=== PATIENT | female | born 1995 | race Caucasian/White ===

== ENCOUNTER 2018-01-04 17:31 | Emergency (ER) | payer BC ==
[2018-01-04] MEDS ORDERED: Sodium Chloride 0.9% 5 ML Syringe FLUSH PRN (17:38)
[2018-01-04] MEDS ORDERED: Sodium Chloride 0.9% 1,000 ML ONE (17:44)
[2018-01-04] MEDS ORDERED: Ondansetron 4 MG/2 ML SDV ONE (17:44)
[2018-01-04] MEDS ORDERED: HYDROmorphone 1 MG/ML Syringe ONE (17:44)
[2018-01-04] MEDS ORDERED: Ketorolac 30 MG/ML SDV ONE (17:53)
[2018-01-04] MEDS ORDERED: HYDROmorphone 1 MG/ML Syringe IVPUSH ONE (17:54)
[2018-01-04] MEDS ORDERED: Ondansetron 4 MG/2 ML SDV IVPUSH ONE ×2 (17:54→18:44)
[2018-01-04] MEDS ORDERED: Ketorolac 30 MG/ML SDV IVPUSH ONE (17:54)
--- NOTE | 2018-01-04 17:59 | EDM.PDOC ---
ED HPI GENERAL MEDICAL PROBLEM - General Chief Complaint: General Stated Complaint: LIGHT HEADED Time Seen by Provider: 01/04/18 17:53 Source of Information: Reports: Patient History Limitations: Reports: No Limitations - History of Present Illness INITIAL COMMENTS - FREE TEXT/NARRATIVE: Patient is a 22-year-old female who presents to the emergency department this afternoon with a complaint of migraine headache and abdominal pain. Patient is status post laparoscopic cholecystectomy on January 01 and surgery was said to be uneventful. Patient states that she's had some abdominal crampy pain since discharge, but now has her typical migraine headache and had 2 episodes of vomiting today. Patient denies chest pain, shortness of breath, fever, bowel changes, dysuria, or any trauma. Onset: Gradual Duration: Day(s): Location: Reports: Head, Abdomen Quality: Reports: Throbbing Severity: Moderate Improves with: Reports: None Worsens with: Reports: None Associated Symptoms: Reports: Nausea/Vomiting. 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 - Past Surgical History Musculoskeletal Surgical History: Reports: Arthroscopic Knee, Other (See Below) Social & Family History - Tobacco Use Smoking Status *Q: Current Every Day Smoker Years of Tobacco use: 6 Month Tobacco Last Used: nov Second Hand Smoke Exposure: Yes - Alcohol Use Days Per Week of Alcohol Use: 0 - Recreational Drug Use Recreational Drug Use: No - Living Situation & Occupation Living situation: Reports: Single Occupation: Employed ED ROS GENERAL - Review of Systems Review Of Systems: ROS reveals no pertinent complaints other than HPI. Constitutional: Reports: No Symptoms, Decreased Appetite. Denies: Fever HEENT: Reports: No Symptoms Respiratory: Reports: No Symptoms Cardiovascular: Reports: No Symptoms Endocrine: Reports: No Symptoms GI/Abdominal: Reports: Abdominal Pain, Nausea, Vomiting : Reports: No Symptoms Musculoskeletal: Reports: No Symptoms Skin: Reports: No Symptoms Neurological: Reports: Headache Psychiatric: Reports: No Symptoms Hematologic/Lymphatic: Reports: No Symptoms Immunologic: Reports: No Symptoms ED EXAM, GENERAL - Physical Exam Exam: See Below Exam Limited By: No Limitations General Appearance: Alert, WD/WN, Mild Distress Eye Exam: Bilateral Eye: Normal Inspection Nose: Normal Inspection, Normal Mucosa, No Blood Throat/Mouth: Normal Inspection, Normal Oropharynx, No Airway Compromise Head: Atraumatic, Normocephalic Neck: Normal Inspection, Supple, Non-Tender, Full Range of Motion Respiratory/Chest: No Respiratory Distress, Lungs Clear, Normal Breath Sounds, No Accessory Muscle Use, Chest Non-Tender Cardiovascular: Regular Rate, Rhythm, No Murmur GI/Abdominal: Normal Bowel Sounds, Soft, Non-Tender, No Organomegaly, No Distention, No Abnormal Bruit, No Mass, Other (Trocar incision sites without erythema, discharge, or dehiscence) Back Exam: Normal Inspection. No: CVA Tenderness (L), CVA Tenderness (R) Extremities: Normal Inspection, No Pedal Edema Neurological: Alert, Oriented, Normal Cognition Psychiatric: Normal Affect, Normal Mood Skin Exam: Warm, Dry, Intact, Normal Color, No Rash Lymphatic: No Adenopathy Course - Orders/Labs/Meds Orders: Active Orders 24 hr Category Date Time Status Peripheral IV Care [RC] . DIRECTED Care 01/04/18 17:38 Active COMPREHENSIVE METABOLIC PN,CMP [CHEM] Stat Lab 01/04/18 17:40 Received URINALYSIS W/MICROSCOPIC [UA W/MICROSCOPIC] [URIN] Stat Lab 01/04/18 17:38 Ordered HYDROmorphone [Dilaudid] Med 01/04/18 17:54 Once 0.5 mg IVPUSH ONETIME ONE Ketorolac [Toradol] Med 01/04/18 17:54 Once 30 mg IVPUSH ONETIME ONE Ondansetron [Zofran] Med 01/04/18 17:54 Once 4 mg IVPUSH ONETIME ONE Sodium Chloride 0.9% [Syrex Flush] Med 01/04/18 17:38 Active 5 ml FLUSH Q8HR PRN Peripheral IV Insertion Adult [OM.PC] Routine Oth 01/04/18 17:38 Ordered Medication Orders Sodium Chloride (Syrex Flush) 5 ml FLUSH Q8HR PRN PRN Reason: Keep Vein Open Labs: Laboratory Tests 01/04/18 Range/Units 17:40 WBC 4.2 L (5.0-10.0) 10^3/uL RBC 4.57 (3.80-5.50) 10^6/uL Hgb 13.4 (12.0-16.0) g/dL Hct 40.3 (37.0-47.0) % MCV 88.2 D (82.0-92.0) fL MCH 29.2 (27.0-31.0) pg MCHC 33.1 (32.0-36.0) g/dL RDW 12.2 (11.5-14.5) % Plt Count 133 L D (150-300) 10^3/uL MPV 8.3 (7.4-10.4) fL Neut % (Auto) 64.6 (50.0-70.0) % Lymph % (Auto) 22.5 (20.0-40.0) % [place] % (Auto) 8.7 H (2.0-8.0) % Eos % (Auto) 3.3 H (1.0-3.0) % Baso % (Auto) 0.9 (0.0-1.0) % Neut # (Auto) 2.8 (2.5-7.0) 10^3/uL Lymph # (Auto) 0.9 L (1.0-4.0) 10^3/uL [place] # (Auto) 0.4 (0.1-0.8) 10^3/uL Eos # (Auto) 0.1 (0.1-0.3) 10^3/uL Baso # (Auto) 0.0 (0.0-0.1) 10^3/uL Meds: Medications Generic Name Dose Route Start Last Admin Trade Name Freq PRN Reason Stop Dose Admin Sodium Chloride 5 ml 01/04/18 17:38 Syrex Flush FLUSH Q8HR PRN Keep Vein Open Discontinued Medications Generic Name Dose Route Start Last Admin Trade Name Freq PRN Reason Stop Dose Admin Hydromorphone HCl Confirm 01/04/18 17:44 Dilaudid Administered 01/04/18 17:45 Dose 1 mg .ROUTE .STK-MED ONE Sodium Chloride Confirm 01/04/18 17:44 Normal Saline Administered 01/04/18 17:45 Dose 1,000 mls @ as directed .ROUTE .STK-MED ONE Ondansetron HCl Confirm 01/04/18 17:44 Zofran Administered 01/04/18 17:45 Dose 4 mg .ROUTE .STK-MED ONE - Re-Assessments/Exams Free Text/Narrative Re-Assessment/Exam: 01/04/18 18:42 Patient afebrile, nontoxic appearing, vital signs stable. Headache and nausea relieved. Patient feeling much better. Patient will follow-up at [facility] tomorrow. Departure - Departure Time of Disposition: 18:44 Disposition: Home, Self-Care 01 Condition: Good Clinical Impression: Status post laparoscopic cholecystectomy Migraine headache Qualifiers: Migraine type: unspecified Status migrainosus presence: without status migrainosus Intractability: not intractable Qualified Code(s): G43.909 - Migraine, unspecified, not intractable, without status migrainosus - Discharge Information Instructions: Recurrent Migraine Headache, [id number] Referrals: Carmen Padilla PA-C [Primary Care Provider] - Forms: ED Department Discharge Additional Instructions: Follow-up at [facility] tomorrow. Return to emergency department sooner if symptoms continue or worsen. Take medication as directed - My Orders Last 24 Hours: My Active Orders 01/04/18 17:38 Peripheral IV Care [RC] . DIRECTED URINALYSIS W/MICROSCOPIC [UA W/MICROSCOPIC] [URIN] Stat Sodium Chloride 0.9% [Syrex Flush] 5 ml FLUSH Q8HR PRN Peripheral IV Insertion Adult [OM.PC] Routine 01/04/18 17:40 COMPREHENSIVE METABOLIC PN,CMP [CHEM] Stat 01/04/18 17:54 HYDROmorphone [Dilaudid] 0.5 mg IVPUSH ONETIME ONE Ketorolac [Toradol] 30 mg IVPUSH ONETIME ONE Ondansetron [Zofran] 4 mg IVPUSH ONETIME ONE - Assessment/Plan Last 24 Hours: My Active Orders 01/04/18 17:38 Peripheral IV Care [RC] . DIRECTED URINALYSIS W/MICROSCOPIC [UA W/MICROSCOPIC] [URIN] Stat Sodium Chloride 0.9% [Syrex Flush] 5 ml FLUSH Q8HR PRN Peripheral IV Insertion Adult [OM.PC] Routine 01/04/18 17:40 COMPREHENSIVE METABOLIC PN,CMP [CHEM] Stat 01/04/18 17:54 HYDROmorphone [Dilaudid] 0.5 mg IVPUSH ONETIME ONE Ketorolac [Toradol] 30 mg IVPUSH ONETIME ONE Ondansetron [Zofran] 4 mg IVPUSH ONETIME ONE Assessment:: Migraine headache, status post laparoscopic cholecystectomy Plan: Follow up at [facility] tomorrow
[2018-01-04 18:05] VITALS: BP 131/78
[2018-01-04 18:06] LABS: CHLORIDE,CL 103 mmol/L (98-115); SODIUM,NA 141 mmol/L (136-145)
[2018-01-04] MEDS ORDERED: Sodium Chloride 0.9% 1,000 ML IV ONE (18:11)
[2018-01-04] MEDS ORDERED: Acetaminophen/oxyCODONE 325-5 MG Tab PO ONE (18:41)
[2018-01-04] MEDS ORDERED: Ondansetron 4 MG Tab.DIS PO ONE (18:41)
== END 2018-01-04 19:00 | disposition home or self-care (01) ==
LOC: KA.ED 17:31
DX: G43.909 Migraine, unspecified, not intractable, without status migrainosus (principal); F17.210 Nicotine dependence, cigarettes, uncomplicated; Z90.49 Acquired absence of other specified parts of digestive tract
CPT/HCPCS: 80053; 81001; 85025; 96361; 96374; 96375; 99283; A9270; J1170; J1885; J2405; J7030

== ENCOUNTER 2021-07-08 18:24 | Emergency (ER) | payer BC, OTHER ==
--- NOTE | 2021-07-08 18:51 | EDM.PDOC ---
ED HPI GENERAL MEDICAL PROBLEM - General Chief Complaint: Respiratory Problem Stated Complaint: COUGH, CONGESTION Time Seen by Provider: 07/08/21 18:51 Source of Information: Reports: Patient, Family History Limitations: Reports: No Limitations - History of Present Illness INITIAL COMMENTS - FREE TEXT/NARRATIVE: Dimas, 26-year-old female, presents with her significant other with generalized body aches, malaise, nausea and headache. Confirmed positive COVID-19 exposure on 01 July 2021 due to receive second immunization 02 July 2021 which was delayed due to there iso lation/quarantine at that time. She had 2 negative tests during that week of the sixth. She started developing symptoms yesterday not feeling as well this morning which has rapidly digressed to the time that she is brought in for evaluation. She denies fever. She has had a headache, generalized body aches, nausea, and mild abdominal discomfort this morning that resolved becoming just generalized body aches and malaise. No production of cough. She has had poor intake fluids as well as solids for the past 2 days with no bowel movement today. She states her urine is very dark and decreased in volume. Last Menses 1 week ago, denies any risk of . Denies any other risk factors. Onset: Gradual Onset Date: 07/07/21 Duration: Hour(s):, Getting Worse Location: Reports: Head, Chest, Abdomen, Generalized Quality: Reports: Burning, Pressure, Sharp, Stabbing, Throbbing Severity: Severe Improves with: Reports: None Worsens with: Reports: Breathing, Movement Context: Reports: Sick Contact Associated Symptoms: Reports: Cough, Headaches, Loss of Appetite, Malaise, Nausea/Vomiting, Weakness Headache Pain Score (Numeric/FACES): 9 - Related Data Allergies Allergy/AdvReac Type Severity Reaction Status Date / Time No Known Allergies Allergy Verified 01/04/18 18:01 Home Meds: Home Meds Hydrocodone/Acetaminophen [Hydrocodon-Acetaminophen 5-325] 1 - 2 tab PO Q4H PRN 01/04/18 [History] Past Medical History Cardiovascular History: Reports: Hypertension (Gestational hypertension) Respiratory History: Reports: None Gastrointestinal History: Reports: Other (See Below) (Dysphagia) 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 Neurological History: Reports: Migraines Psychiatric History: Reports: None Endocrine/Metabolic History: Reports: Multinodular Thyroid - Past Surgical History GI Surgical History: Reports: Cholecystectomy Musculoskeletal Surgical History: Reports: Arthroscopic Knee, Other (See Below) - Past Imaging History Past Imaging History: Reports: CAT Scan, Ultrasound, Xray Social & Family History - Family History Family Medical History: No Pertinent Family History - Tobacco Use Tobacco Use Status *Q: Former Tobacco User Tobacco Use Within Last Twelve Months: Cigarettes - Living Situation & Occupation Living situation: Reports: Single Occupation: Employed ED ROS GENERAL - Review of Systems Review Of Systems: Comprehensive ROS is negative, except as noted in HPI. ED EXAM, GENERAL - Physical Exam Exam: See Below Free Text/Narrative:: Alert, oriented, in moderate distress. There is no cyanosis nor pallor noted Ill-appearing young female with tacky oral membranes. She is warm to the touch but afebrile. PERRLA no icterus no injection. No involvement the auditory canals nor tympanic membranes. Nasal passages are patent. Oropharynx is dry/tacky with no erythema nor exudate. Neck is supple with no lymphadenopathy. Thorax is raspy a lot of referred sounds from the laryngeal region as any effort for deep breath induces a harshness leading to cough. Cardiac is regular free of murmur. Abdomen is soft I do not elicit any tenderness with bowel sounds present. No flank pain. General malaise and tenderness to any of the body areas examined. There is no edema to the lower extremities negative Homans' sign but she states her legs are achy in general. She is able to plantarflex dorsiflex against resistance with no deficits and dorsalis pedis pulse is present. rectal is deferred. #1 Interpretation EKG Date: 07/08/21 Time: 19:12 Rhythm: NSR Rate (Beats/Min): 93 [employer] [employer]: Normal P-Wave: Present QRS: Normal ST-T: Normal QT: Normal Comparison: NA - No Prior EKG Course - Vital Signs Last Recorded V/S: Last Vital Signs Temp 98.5 F 07/08/21 18:45 Pulse 93 07/08/21 21:13 Resp 14 07/08/21 21:13 BP 120/72 07/08/21 21:13 Pulse Ox 95 07/08/21 21:13 - Orders/Labs/Meds Orders: Active Orders 24 hr Category Date Time Status Ondansetron [Zofran ODT] Med 07/08/21 21:35 Ordered 8 mg PO Q4H PRN EKG 12 Lead [EK] Stat Ther 07/08/21 18:53 Ordered Medication Orders Ondansetron HCl (Ondansetron 4 Mg Tab.Dis) 8 mg PO Q4H PRN PRN Reason: Nausea/Vomiting Labs: Laboratory Tests 07/08/21 07/08/21 07/08/21 Range/Units 19:25 19:25 19:30 WBC 10.20 H (5.00-10.00) 10^3/uL RBC 5.30 (3.80-5.50) 10^6/uL Hgb 14.7 (12.0-16.0) g/dL Hct 46.9 (37.0-47.0) % MCV 88.5 (82.0-92.0) fL MCH 27.7 (27.0-31.0) pg MCHC 31.3 L (32.0-36.0) g/dL RDW 12.0 (11.5-14.5) % Plt Count 160 (150-400) 10^3/uL MPV 9.9 (7.4-10.4) fL Immature Gran % (Auto) 0.1 (0.0-5.0) % Neut % (Auto) 83.7 H (50.0-70.0) % Lymph % (Auto) 8.8 L (20.0-40.0) % [place] % (Auto) 4.4 (2.0-8.0) % Eos % (Auto) 2.7 (1.0-3.0) % Baso % (Auto) 0.3 (0.0-1.0) % Neut # (Auto) 8.53 H (2.50-7.00) 10^3/uL Lymph # (Auto) 0.90 L (1.00-4.00) 10^3/uL [place] # (Auto) 0.45 (0.10-0.80) 10^3/uL Eos # (Auto) 0.28 (0.10-0.30) 10^3/uL Baso # (Auto) 0.03 (0.00-0.10) 10^3/uL Immature Gran # (Auto) 0.01 (0.00-0.50) 10^3/uL D-Dimer, Quantitative < 100 (<400) ng/mL Sodium 140 (136-145) mmol/L Potassium 4.2 (3.5-5.1) mmol/L Chloride 102 (98-107) mmol/L Carbon Dioxide 26.7 (21.0-32.0) mmol/L Anion Gap 15.5 H (5-15) mmol/L BUN 7 (7-18) mg/dL Creatinine 0.77 (0.51-1.17) mg/dL Est Cr Clr Drug Dosing TNP Estimated GFR (MDRD) > 60 mL/min Glucose 97 (70-140) mg/dL Lactic Acid (0.4-2.0) mmol/L Calcium 8.7 (8.7-10.3) mg/dL Total Bilirubin 0.4 (0.2-1.0) mg/dL AST 10 L (15-37) U/L ALT 16 (14-63) U/L Alkaline Phosphatase 121 H (46-116) U/L Total Protein 6.8 (6.4-8.2) g/dL Albumin 3.69 (3.40-5.00) g/dL Specimen Type Urine Color (YELLOW) Urine Appearance (CLEAR) Urine pH (5.0-9.0) Ur Specific [place] (1.005-1.030) Urine Protein (NEGATIVE) mg/dL Urine Glucose (UA) (NEGATIVE) mg/dL Urine Ketones (NEGATIVE) mg/dL Urine Occult Blood (NEGATIVE) Urine Nitrite (NEGATIVE) Urine Bilirubin (NEGATIVE) Urine Urobilinogen (0.2-1.0) E.U./dL Ur Leukocyte Esterase (NEGATIVE) Influenza Type A RNA (NEGATIVE) Influenza Type B RNA (NEGATIVE) SARS-CoV-2 RNA (RAIN) (NEGATIVE) 07/08/21 07/08/21 07/08/21 Range/Units 19:30 19:30 20:00 WBC (5.00-10.00) 10^3/uL RBC (3.80-5.50) 10^6/uL Hgb (12.0-16.0) g/dL Hct (37.0-47.0) % MCV (82.0-92.0) fL MCH (27.0-31.0) pg MCHC (32.0-36.0) g/dL RDW (11.5-14.5) % Plt Count (150-400) 10^3/uL MPV (7.4-10.4) fL Immature Gran % (Auto) (0.0-5.0) % Neut % (Auto) (50.0-70.0) % Lymph % (Auto) (20.0-40.0) % [place] % (Auto) (2.0-8.0) % Eos % (Auto) (1.0-3.0) % Baso % (Auto) (0.0-1.0) % Neut # (Auto) (2.50-7.00) 10^3/uL Lymph # (Auto) (1.00-4.00) 10^3/uL [place] # (Auto) (0.10-0.80) 10^3/uL Eos # (Auto) (0.10-0.30) 10^3/uL Baso # (Auto) (0.00-0.10) 10^3/uL Immature Gran # (Auto) (0.00-0.50) 10^3/uL D-Dimer, Quantitative (<400) ng/mL Sodium (136-145) mmol/L Potassium (3.5-5.1) mmol/L Chloride (98-107) mmol/L Carbon Dioxide (21.0-32.0) mmol/L Anion Gap (5-15) mmol/L BUN (7-18) mg/dL Creatinine (0.51-1.17) mg/dL Est Cr Clr Drug Dosing Estimated GFR (MDRD) mL/min Glucose (70-140) mg/dL Lactic Acid 0.9 (0.4-2.0) mmol/L Calcium (8.7-10.3) mg/dL Total Bilirubin (0.2-1.0) mg/dL AST (15-37) U/L ALT (14-63) U/L Alkaline Phosphatase (46-116) U/L Total Protein (6.4-8.2) g/dL Albumin (3.40-5.00) g/dL Specimen Type Urincc Urine Color Yellow (YELLOW) Urine Appearance Cloudy H (CLEAR) Urine pH 8.5 (5.0-9.0) Ur Specific [place] 1.020 (1.005-1.030) Urine Protein Negative (NEGATIVE) mg/dL Urine Glucose (UA) Negative (NEGATIVE) mg/dL Urine Ketones 40 H (NEGATIVE) mg/dL Urine Occult Blood Negative (NEGATIVE) Urine Nitrite Negative (NEGATIVE) Urine Bilirubin Negative (NEGATIVE) Urine Urobilinogen 0.2 (0.2-1.0) E.U./dL Ur Leukocyte Esterase Negative (NEGATIVE) Influenza Type A RNA Negative (NEGATIVE) Influenza Type B RNA Negative (NEGATIVE) SARS-CoV-2 RNA (RAIN) Negative (NEGATIVE) Meds: Medications Generic Name Dose Route Start Last Admin Trade Name Freq PRN Reason Stop Dose Admin Ondansetron HCl 8 mg 07/08/21 21:35 Ondansetron 4 Mg Tab.Dis PO Q4H PRN Nausea/Vomiting Discontinued Medications Generic Name Dose Route Start Last Admin Trade Name Freq PRN Reason Stop Dose Admin Hydromorphone HCl 1 mg 07/08/21 19:08 07/08/21 19:35 Hydromorphone 1 Mg/Ml Syringe IVPUSH 07/08/21 19:09 1 mg ONETIME ONE Administration Sodium Chloride 1,000 mls @ 999 mls/hr 07/08/21 19:07 07/08/21 19:00 Normal Saline IV 07/08/21 20:07 999 mls/hr .BOLUS ONE Administration Sodium Chloride 1,000 mls @ 999 mls/hr 07/08/21 19:55 07/08/21 20:41 Normal Saline IV 07/08/21 20:55 999 mls/hr .BOLUS ONE Administration Promethazine HCl 25 mg/ Sodium 101 mls @ 400 mls/hr 07/08/21 21:02 07/08/21 21:09 Chloride IV 07/08/21 21:17 400 mls/hr Q6H ONE Administration Ondansetron HCl 8 mg 07/08/21 19:07 07/08/21 19:29 Ondansetron 4 Mg/2 Ml Sdv IVPUSH 07/08/21 19:08 8 mg ONETIME ONE Administration Ondansetron HCl Confirm 07/08/21 19:13 07/08/21 19:30 Ondansetron 4 Mg/2 Ml Sdv Administered 07/08/21 19:14 Not Given Dose 4 mg .ROUTE .STK-MED ONE - Re-Assessments/Exams Free Text/Narrative Re-Assessment/Exam: 07/08/21 19:56 1 L of fluid infused with no significant urge for urination. We will start second liter while awaiting lab results. 07/08/21 21:07 Mild nausea returning at this time, will implement 25 mg promethazine IV. Headache has significantly improved feeling much better advised all test being negative. Departure - Departure Time of Disposition: 21:48 Disposition: Home, Self-Care 01 Condition: Good Clinical Impression: COVID-19 ruled out by laboratory testing, Malaise and fatigue, Mild basilar atelectasis of both lungs Headache Qualifiers: Headache type: unspecified Headache chronicity pattern: acute headache Intractability: not intractable Qualified Code(s): R51.9 - Headache, unspecified - Discharge Information *PRESCRIPTION DRUG MONITORING PROGRAM REVIEWED*: Not Applicable *COPY OF PRESCRIPTION DRUG MONITORING REPORT IN PATIENT JORDYN: Not Applicable Instructions: General Headache Without Cause Referrals: Naomi Wynn MD [Primary Care Provider] - Andie Rey NP [Nurse Practitioner] - Forms: ED Department Discharge Additional Instructions: Your COVID-19 and influenza tests are negative. You are likely experiencing some form of viral illness in conjunction with your chronic headache history. You were mildly dehydrated as was shown in the concentration of your urine. You need to go home and rest, we will send Zofran home with you for milligram, 1 every 4 hours as needed for nausea to get you through the night as needed. Contact your clinic in the morning to discuss the visit here tonight and to see when they would like to see you for recheck. Although influenza and Covid were negative this evening with your direct exposure, you still may become positive. Sip on fluids maintain good hydration as tolerated. Advance your diet as you are able to without inducing any abdominal discomfort or nausea. Call your clinic in the morning to discuss reassessment. Return to the emergency department as needed outside clinic hours. Sepsis Event Note (ED) - Focused Exam Vital Signs: Vital Signs Temp Pulse Resp BP Pulse Ox 07/08/21 21:13 93 14 120/72 95 07/08/21 20:45 101 H 14 95 07/08/21 20:42 103 H 16 108/70 95 07/08/21 18:45 98.5 F 101 H 16 102/62 99 - Problem List & Annotations (1) Headache SNOMED Code(s): 61984565 Code(s): R51.9 - HEADACHE, UNSPECIFIED Status: Acute Priority: High Current Visit: Yes Qualifiers: Headache type: unspecified Headache chronicity pattern: acute headache Intractability: not intractable Qualified Code(s): R51.9 - Headache, unspecified (2) Cough SNOMED Code(s): 75933911 Code(s): R05 - COUGH Status: Acute Priority: High Current Visit: Yes (3) Malaise and fatigue SNOMED Code(s): 746415774 Code(s): R53.81 - OTHER MALAISE; R53.83 - OTHER FATIGUE Status: Acute Priority: High Current Visit: Yes (4) Exposure to COVID-19 virus SNOMED Code(s): 247294011 Code(s): Z20.822 - CONTACT WITH AND (SUSPECTED) EXPOSURE TO COVID-19 Status: Acute Priority: High Current Visit: Yes (5) Mild basilar atelectasis of both lungs SNOMED Code(s): 06470370 Code(s): J98.11 - ATELECTASIS Status: Acute Current Visit: Yes (6) COVID-19 ruled out by laboratory testing SNOMED Code(s): 926282236263838831, 502019663132374372 Code(s): Z20.822 - CONTACT WITH AND (SUSPECTED) EXPOSURE TO COVID-19 Status: Acute Current Visit: Yes - Problem List Review Problem List Initiated/Reviewed/Updated: Yes - My Orders Last 24 Hours: My Active Orders 07/08/21 18:53 EKG 12 Lead [EK] Stat 07/08/21 21:35 Ondansetron [Zofran ODT] 8 mg PO Q4H PRN - Assessment/Plan Last 24 Hours: My Active Orders 07/08/21 18:53 EKG 12 Lead [EK] Stat 07/08/21 21:35 Ondansetron [Zofran ODT] 8 mg PO Q4H PRN Plan: Your COVID-19 and influenza tests are negative. You are likely experiencing some form of viral illness in conjunction with your chronic headache history. You were mildly dehydrated as was shown in the concentration of your urine. You need to go home and rest, we will send Raghavendra home with you for milligram, 1 every 4 hours as needed for nausea to get you through the night as needed. Contact your clinic in the morning to discuss the visit here tonight and to see when they would like to see you for recheck. Although influenza and Covid were negative this evening with your direct exposure, you still may become positive. Sip on fluids maintain good hydration as tolerated. Advance your diet as you are able to without inducing any abdominal discomfort or nausea. Call your clinic in the morning to discuss reassessment. Return to the emergency department as needed outside clinic hours.
[2021-07-08] MEDS: Sodium Chloride 0.9% 1,000 ML IV ONE ×2 (19:00→20:41)
[2021-07-08] MEDS: Ondansetron 4 MG/2 ML SDV IVPUSH ONE (19:29)
[2021-07-08] MEDS: Ondansetron 4 MG/2 ML SDV ONE (19:30)
[2021-07-08] MEDS: HYDROmorphone 1 MG/ML Syringe IVPUSH ONE (19:35)
--- NOTE | 2021-07-08 19:43 | CR ---
[id number] RAD/RAD Chest Portable EXAM: PORTABLE CHEST INDICATION: TESTING FOR COVID COMPARISON: November 28, 2019. DISCUSSION: Mild bibasilar atelectasis with no definite infiltrates. Normal heart size. No effusions IMPRESSION: 1. Mild bibasilar atelectasis. No definite infiltrates. Natalio Hernandez MD 07/08/211941 Thank you for allowing us to participate in the care of your patient.
[2021-07-08 20:01] LABS: ANION GAP 15.5 mmol/L (5-15); CHLORIDE,CL 102 mmol/L (98-107); SODIUM,NA 140 mmol/L (136-145)
[2021-07-08 20:15] LABS: CORONAVIRUS COVID-19 NAA NEGATIVE (NEGATIVE)
[2021-07-08] MEDS: Promethazine 25 MG in Sodium Chloride 0.9% 100 ML IV ONE (21:09)
[2021-07-08] MEDS: Ondansetron 4 MG Tab.DIS PO PRN (21:48)
[2021-07-08 21:52] VITALS: BP 106/70; PULSE 92
== END 2021-07-08 21:59 | disposition home or self-care (01) ==
LOC: KA.ED 18:24
DX: J98.11 Atelectasis (principal); R51.9 Headache, unspecified; R53.83 Other fatigue; I10 Essential (primary) hypertension; Z87.891 Personal history of nicotine dependence; Z20.822 Contact with and (suspected) exposure to COVID-19
CPT/HCPCS: 0240U; 36415; 71045; 80053; 81003; 83605; 85025; 85379; 93005; 96365; 96375; 99284; 99284-25; A9270-GY; J1170; J2405; J2550; J7030

== ENCOUNTER 2023-12-14 23:30 | Emergency (ER) | payer OTHER ==
[2023-12-14] MEDS: Sodium Chloride 0.9% 10 ML Syringe FLUSH PRN (23:52)
[2023-12-15] MEDS ORDERED: Naloxone 0.4 MG/ML SDV IVPUSH PRN
[2023-12-15] MEDS: Ondansetron 4 MG/2 ML SDV IVPUSH ONE (00:02)
[2023-12-15] MEDS: HYDROmorphone 1 MG/ML Syringe IVPUSH ONE (00:16)
[2023-12-15 00:32] LABS: BASOPHILS ABSOLUTE AUTO 0.01 10^3/uL (0.00-0.10); BASOPHILS PERCENT AUTO 0.1 % (0.0-1.0); EOSINOPHILS ABSOLUTE AUTO 0.32 10^3/uL (0.10-0.30); EOSINOPHILS PERCENT AUTO 4.4 % (1.0-3.0); HEMATOCRIT 43.6 % (37.0-47.0); HEMOGLOBIN 13.4 g/dL (12.0-16.0); IMMATURE GRAN ABSOLUTE AUTO 0.01 10^3/uL (0.00-0.50); IMMATURE GRAN PERCENT AUTO 0.1 % (0.0-5.0); LYMPHOCYTES ABSOLUTE AUTO 0.51 10^3/uL (1.00-4.00); LYMPHOCYTES PERCENT AUTO 7.1 % (20.0-40.0); MEAN CORPUSCULAR HEMOGLOBIN 27.6 pg (27.0-31.0); MEAN CORPUSCULAR HGB CONC 30.7 g/dL (32.0-36.0); MEAN CORPUSCULAR VOLUME 89.7 fL (82.0-92.0); MEAN PLATELET VOLUME 9.8 fL (7.4-10.4); MONOCYTES PERCENT AUTO 8.3 % (2.0-8.0); NEUTROPHILS ABSOLUTE AUTO 5.77 10^3/uL (2.50-7.00); PLATELET COUNT,PLT 158 10^3/uL (150-400); RED BLOOD CELL COUNT 4.86 10^6/uL (3.80-5.50); RED CELL DISTRIBUTION WIDTH 13.6 % (11.5-14.5); WHITE BLOOD CELL COUNT,WBC 7.22 10^3/uL (5.00-10.00)
[2023-12-15 00:49] LABS: ALANINE AMINOTRANSFERASE,ALT 15 U/L (14-63); ALBUMIN 3.68 g/dL (3.40-5.00); ALKALINE PHOSPHATASE 58 U/L (46-116); ANION GAP 13.3 mmol/L (5-15); BILIRUBIN TOTAL 0.4 mg/dL (0.2-1.0); BLOOD UREA NITROGEN,BUN 10 mg/dL (7-18); CALCIUM 8.1 mg/dL (8.7-10.3); CARBON DIOXIDE,CO2 27.9 mmol/L (21.0-32.0); CHLORIDE,CL 105 mmol/L (98-107); CREATININE 0.79 mg/dL (0.51-1.17); GLUCOSE RANDOM 106 mg/dL (70-140); POTASSIUM,K 4.2 mmol/L (3.5-5.1); PROTEIN TOTAL,TP 6.1 g/dL (6.4-8.2); SODIUM,NA 142 mmol/L (136-145)
[2023-12-15 00:51] LABS: ASPARTATE AMNIOTRANSFERASE,AST < 9 U/L (15-37); ESTIMATED GFR 104 mL/min (>=60)
[2023-12-15 01:07] LABS: INFLUENZA A NAA NEGATIVE (NEGATIVE); INFLUENZA B NAA NEGATIVE (NEGATIVE); RESPIRATORY SYNCYTIAL VIR NAA NEGATIVE (NEGATIVE)
[2023-12-15 01:08] VITALS: BP 101/61; PULSE 97
[2023-12-15 01:08] LABS: CORONAVIRUS COVID-19 NAA NEGATIVE (NEGATIVE)
== END 2023-12-15 01:32 | disposition home or self-care (01) ==
LOC: KA.ED 23:30
DX: N92.6 Irregular menstruation, unspecified (principal); R10.2 Pelvic and perineal pain
CPT/HCPCS: 0241U; 80053; 84703; 85025; 96374; 96375; 99284; 99284-25; J1170; J2405; J3490